=== PATIENT | female | born 1985 | race Caucasian/White ===

== ENCOUNTER → 2021-04-18 | Outpatient (REF) | payer OTHER ==
[2021-04-18 13:23] LABS: HEMATOCRIT 24.5 % (36.0-47.0); MEAN CORPUSCULAR HEMOGLOBIN 17.5 pg (27.0-33.0); MEAN CORPUSCULAR HGB CONC 26.5 g/dl (32.0-36.5); PLATELET COUNT, AUTOMATED 365 10^3/uL (150-450); RED BLOOD COUNT 3.71 10^6/uL (4.00-5.40); WHITE BLOOD COUNT 7.3 10^3/uL (4.0-10.0)
[2021-04-18 13:34] LABS: HEMOGLOBIN 6.5 g/dl (12.0-15.5)
[2021-04-18 13:47] LABS: ALBUMIN 3.6 GM/DL (3.2-5.2); ALT/SGPT 16 U/L (12-78); BILIRUBIN,TOTAL 0.4 MG/DL (0.2-1.0); BLOOD UREA NITROGEN 7 MG/DL (7-18); CARBON DIOXIDE LEVEL 27 MEQ/L (21-32); CHLORIDE LEVEL 105 MEQ/L (98-107); CREATININE FOR GFR 0.62 MG/DL (0.55-1.30); GLOMERULAR FILTRATION RATE > 60.0 (>60); GLUCOSE, FASTING 70 MG/DL (70-100); POTASSIUM SERUM 4.2 MEQ/L (3.5-5.1); SODIUM LEVEL 138 MEQ/L (136-145); TOTAL PROTEIN 7.2 GM/DL (6.4-8.2)
[2021-04-18 14:43] LABS: FERRITIN 3 NG/ML (8-252); IRON (FE) 12 UG/DL (50-170); PERCENT SATURATION 2.4 % (13.2-45.0); TOTAL IRON BINDING CAPACITY 502 UG/DL (250-450)
== END ==
LOC: M SFHCADAM 11:19
PROVIDERS: ATTEND Physician Assistant
DX: F41.9 Anxiety disorder, unspecified (principal); R53.82 Chronic fatigue, unspecified; L65.9 Nonscarring hair loss, unspecified; R13.19 Other dysphagia; D64.9 Anemia, unspecified

== ENCOUNTER → 2021-05-30 | Outpatient (REF) | payer OTHER | LOC: M SFHCADAM 15:25 | PROVIDERS: ATTEND Physician Assistant | DX: D50.8 Other iron deficiency anemias (principal) ==

== ENCOUNTER → 2021-07-09 | Outpatient (REF) | payer OTHER ==
[2021-07-09 17:13] LABS: HEMATOCRIT 30.1 % (36.0-47.0); HEMOGLOBIN 8.3 g/dl (12.0-15.5); MEAN CORPUSCULAR HEMOGLOBIN 18.7 pg (27.0-33.0); MEAN CORPUSCULAR HGB CONC 27.6 g/dl (32.0-36.5); MEAN CORPUSCULAR VOLUME 67.6 fl (80.0-96.0); PLATELET COUNT, AUTOMATED 383 10^3/uL (150-450); RED BLOOD COUNT 4.45 10^6/uL (4.00-5.40); WHITE BLOOD COUNT 5.3 10^3/uL (4.0-10.0)
[2021-07-09 17:26] LABS: PERCENT SATURATION 4.2 % (13.2-45.0); THYROID STIMULATING HORMONE 2.11 uIU/ML (0.358-3.740)
== END ==
LOC: M SFHCADAM 11:59
PROVIDERS: ATTEND Physician Assistant
DX: D50.8 Other iron deficiency anemias (principal); R63.4 Abnormal weight loss; F51.04 Psychophysiologic insomnia